=== PATIENT | male | born 1995 | race Caucasian/White ===

== ENCOUNTER 2018-04-15 13:14 | Emergency (ER) | payer SELFPAY ==
--- NOTE | 2018-04-15 13:37 | EDM.PDOC ---
ED HPI GENERAL MEDICAL PROBLEM - General Chief Complaint: Abdominal Pain Stated Complaint: ABDOMINAL PAIN Time Seen by Provider: 04/15/18 13:31 Source of Information: Reports: Patient History Limitations: Reports: No Limitations - History of Present Illness INITIAL COMMENTS - FREE TEXT/NARRATIVE: 23-year-old male attends the ED with right lower quadrant abdominal pain that comes and goes for the last 3 days. Initially was quite painful on Tuesday night April 12. Since that time and his been coming and going. His appetite remains fair. He thought perhaps he might be running a fever and feels a bit foggy in the head. He drinks 3 or 4 beers daily. Denies any diarrhea. Feels his bowels are working for the most part normally. No dysuria urgency or frequency. No previous abdominal surgery. No pain radiating to his back. Does not hurt to cough walk or ride in a vehicle. Onset: Sudden Onset Date: 04/12/18 Duration: Day(s):, Intermittent Location: Reports: Abdomen (Right lower quadrant of the abdomen more right mid abdomen from the umbilicus to the anterior axillary line.) Quality: Reports: Ache, Stabbing Severity: Moderate (Occasional sharp and stabbing or colicky type pain) Improves with: Reports: None Worsens with: Reports: None Context: Reports: Other. Denies: Activity, Exercise, Lifting, Sick Contact, Trauma Associated Symptoms: Reports: Confusion (Spontaneous occurrence.), Cough, Fever/ Chills, Nausea/Vomiting (Mild nausea without any vomiting.). Denies: Chest Pain ( Feels confused and dazed at times.), cough w sputum, Diaphoresis (Mild cough from cigarette smoking), Headaches (Fitzgerald he might be running a low-grade fever but temperature is 37.2 here.), Loss of Appetite, Malaise, Rash, Seizure, Shortness of Breath, Syncope (8 breakfast this morning.), Weakness Treatments [employer]PER[employer]OR: Reports: Other (see below) Right Abdominal Pain Score (Numeric/FACES): 7 - Related Data Allergies Allergy/AdvReac Type Severity Reaction Status Date / Time bee venom protein (honey bee) Allergy Swelling Verified 04/15/18 13:27 Home Meds: Home Meds . [No Known Home Meds] 04/15/18 [History] Social & Family History - Living Situation & Occupation Living situation: Reports: Single Occupation: Employed ED ROS GENERAL - Review of Systems Review Of Systems: See Below Constitutional: Reports: Malaise, Weakness, Fatigue. Denies: Fever, Chills HEENT: Reports: No Symptoms Respiratory: Reports: Cough (From cigarette smoking.) Cardiovascular: Reports: No Symptoms Endocrine: Reports: No Symptoms GI/Abdominal: Reports: Abdominal Pain, Nausea. Denies: Decreased Appetite ( Right lower quadrant abdominal discomfort off and on for the last 3 days.), Difficulty Swallowing, Distension, Flatus, Hematemesis, Hematochezia, Melena, Mucous in Stool, Stool Incontinence (Intermittent nausea), Vomiting, Other : Denies: No Symptoms, Discharge, Dysuria, Flank Pain, Frequency, Hematuria, Incontinence Musculoskeletal: Reports: Muscle Pain Skin: Reports: No Symptoms (Feels generalized musculoskeletal images discomfort which she blames on work.) Neurological: Reports: Confusion (Feels like he is in a fog at times.) Psychiatric: Reports: No Symptoms Hematologic/Lymphatic: Reports: No Symptoms Immunologic: Reports: No Symptoms ED EXAM, GI/ABD - Physical Exam Exam: See Below Exam Limited By: No Limitations General Appearance: Alert, WD/WN, No Apparent Distress, Other (Vital signs are all normal.) Eyes: Bilateral: Normal Appearance (No jaundice.) Throat/Mouth: Normal Inspection, Normal Lips, Normal Oropharynx, Other Head: Atraumatic, Normocephalic Neck: Normal Inspection, Supple, Non-Tender, Full Range of Motion. No: Lymphadenopathy (L), Lymphadenopathy (R) Respiratory/Chest: No Respiratory Distress, Lungs Clear, Normal Breath Sounds, No Accessory Muscle Use Cardiovascular: Normal Peripheral Pulses, Regular Rate, Rhythm, No Edema, No Gallop, No Murmur, No Rub GI/Abdominal Exam: Normal Bowel Sounds, Soft, Non-Tender, No Organomegaly, No Distention, No Abnormal Bruit, No Mass, Pelvis Stable. No: Guarding, Rigid, Rebound, Tender (Male) Exam: No Hernia Back Exam: Normal Inspection, Full Range of Motion, Paraspinal Tenderness. No: CVA Tenderness (L), CVA Tenderness (R) Extremities: Normal Inspection, Normal Range of Motion, Non-Tender, No Pedal Edema Neurological: Alert, Oriented, CN II-XII Intact, Normal Cognition, Normal Gait Psychiatric: Normal Affect, Normal Mood Skin Exam: Warm, Dry, Intact, Normal Color, No Rash Course - Vital Signs Last Recorded V/S: Last Vital Signs Temp 37.2 C 04/15/18 13:24 Pulse 85 04/15/18 13:24 Resp 17 04/15/18 13:24 BP 119/71 04/15/18 13:24 Pulse Ox 100 04/15/18 13:24 - Orders/Labs/Meds Orders: Active Orders 24 hr Category Date Time Status Abdomen 1V Flat [CR] Stat Exams 04/15/18 13:38 Taken URINALYSIS W/MICROSCOPIC [UA W/MICROSCOPIC] [URIN] Stat Lab 04/15/18 14:25 Ordered Labs: Laboratory Tests 04/15/18 Range/Units 14:25 Urine Color Yellow (Yellow) Urine Appearance Clear (Clear) Urine pH 8.0 (5.0-8.0) Ur Specific [place] 1.020 (1.005-1.030) Urine Protein Negative (Negative) Urine Glucose (UA) Negative (Negative) Urine Ketones Negative (Negative) Urine Occult Blood Negative (Negative) Urine Nitrite Negative (Negative) Urine Bilirubin Negative (Negative) Urine Urobilinogen 1.0 (0.2-1.0) Ur Leukocyte Esterase Negative (Negative) Urine RBC Not seen (0-5) /hpf Urine WBC 0-5 (0-5) /hpf Ur Epithelial Cells 0-5 (0-5) /hpf Urine Bacteria Not seen (FEW) /hpf Urine Mucus Not seen (FEW) /hpf Meds: Medications Discontinued Medications Generic Name Dose Route Start Last Admin Trade Name Freq PRN Reason Stop Dose Admin Magnesium Citrate 180 ml 04/15/18 15:40 Citrate Of Magnesia PO 04/15/18 15:41 ONETIME ONE - Radiology Interpretation Free Text/Narrative:: 23-year-old male attends the ED due to intermittent right lower quadrant abdominal pain for the last 3 days. States was most severe the first night it came on on Tuesday the . Since that time the pain has been coming and going. Occasionally makes him feel nauseated but he has not vomited in his appetite remains normal. On examination chest is clear heart is sinus but no signs of normal. Abdomen shows bowel sounds active in all 4 quadrants. Soft palpation with no organomegaly masses or peritoneal signs. History suggests intestinal colic problem likely constipation. Plan KUB and urinalysis to be done. - Re-Assessments/Exams Free Text/Narrative Re-Assessment/Exam: 04/15/18 14:48 still waiting on his urinalysis. It is sent over but is not yet available. KUB reveals a large bolus of stool down in the rectal vault. The remainder the bowel gas pattern is insignificant. Reexamined his abdomen again he shows no peritoneal signs or evidence of appendicitis clinically. I will await the urinalysis to make sure there is no evidence of hematuria. 04/15/18 15:39 urinalysis is normal as well. He will therefore be discharged to home on Citroma 6 ounces by mouth mixed with 5 ounces of juice by mouth once to provide bowel cleanse. Departure - Departure Time of Disposition: 15:41 Disposition: Home, Self-Care 01 Condition: Fair Clinical Impression: Constipation by delayed colonic transit Abdominal pain Qualifiers: Abdominal location: right lower quadrant Qualified Code(s): R10.31 - Right lower quadrant pain - Discharge Information *PRESCRIPTION DRUG MONITORING PROGRAM REVIEWED*: Not Applicable *COPY OF PRESCRIPTION DRUG MONITORING REPORT IN PATIENT CHARLEEN: Not Applicable Instructions: Constipation, Adult, [id number], Abdominal Pain, Adult, Easy-to -Read Referrals: PCP,None [Primary Care Provider] - Forms: ED Department Discharge, ED Return to Work/School Form Additional Instructions: Evaluation the emergency room today in regards to recurrent right lower quadrant abdominal pain off and on for the last 3 days. Mild associated nausea. Appetite remains good. Examination reveals benign abdominal exam with no signs of peritonitis to suggest underlying appendicitis or other serious pathology. An x-ray of the abdomen reveals increased stool particularly in the lower rectal vault and right lower quadrant. Urinalysis proved to be negative for any signs of infection or particularly evidence of a kidney stone. Remained is therefore to be bowel cleanse using magnesium citrate or Citroma it's called. Takes 6 ounces with 45 ounces of juice by mouth once. It'll take an hour to to work and usually her bowels work 3 or 4 times often ending in some degree of diarrhea. This should relieve your abdominal pain completely. Eat and drink per normal. - My Orders Last 24 Hours: My Active Orders 04/15/18 13:38 Abdomen 1V Flat [CR] Stat 04/15/18 14:25 URINALYSIS W/MICROSCOPIC [UA W/MICROSCOPIC] [URIN] Stat - Assessment/Plan Last 24 Hours: My Active Orders 04/15/18 13:38 Abdomen 1V Flat [CR] Stat 04/15/18 14:25 URINALYSIS W/MICROSCOPIC [UA W/MICROSCOPIC] [URIN] Stat
[2018-04-15] MEDS ORDERED: Magnesium Citrate Solution 296 ML Bottle PO ONE (15:40)
== END 2018-04-15 15:55 | disposition home or self-care (01) ==
LOC: JD.ED 13:14
DX: K59.01 Slow transit constipation (principal)
CPT/HCPCS: 74018; 81001; 99284; A9270